=== PATIENT | female | born 1960 | race Caucasian/White ===

== ENCOUNTER 2020-04-12 09:19 | Outpatient (CLI) | payer OTHER, SELFPAY ==
--- NOTE | 2020-04-12 09:22 | EST_ITS ---
Patient Info Name: Anabel Doan Age: 59 years : 1960 Gender: Female Ht: 66 in Wt: 215 lbs BSA: 2.17 m2 HR: 78 bpm BP: 132 / 85 mmHg Heart Rhythm: Sinus Rhythm Exam Date: 04/12/2020 9:36 AM Exam Location: [facility] Patient Status: Outpatient Admit Date: 04/12/2020 Staff Ordering Physician: Jacky Mcnair MD Sales Office Manager: LAYNE Attending Provider: ALISTAIR MATTSON DO Referring Physician: Tabby PIRES; Exercise Technologist: Sasha Bhatia RDCS Exercise Physician: Alistair Mattson DO Exam Type: CA stress echo Study Info Indications R07.89 - Other chest pain Treadmill exercise stress echocardiogram is performed. Summary 1. 1. Negative Dawood exercise stress test for ischemic ST changes by ECG criteria. 2. 2. Reduced functional capacity, achieving 7 METs of workload. 3. 3. Appropriate HR response to exercise. 4. 4. Appropriate HR recovery at 1 minute post exercise. 5. 5. Negative stress echocardiogram for ischemia by wall motion analysis. 6. 6. Patient informed of the above results. Stress Echo Findings Left Ventricle Appropriate increase in LV endocardial thickening with systole. Appropriate augmenation of contractility with systole. No wall motion abnormality. Left Ventricle Normal LV systolic function, no wall motion abnormality. Protocol: Dawood Stress ECG Details Stage: REST Duration (min): 4 min : 52 sec Speed (mph): 0.0 Grade (%): 0 HR (bpm): 84 SBP (mmHg): 132 DBP (mmHg): 85 METS: --- Stage: REST Duration (min): 32 min : 10 sec Speed (mph): 0.0 Grade (%): 0 HR (bpm): 87 SBP (mmHg): 132 DBP (mmHg): 85 METS: --- Stage: STAGE 1 Duration (min): 1 min : 0 sec Speed (mph): 1.7 Grade (%): 10 HR (bpm): 107 SBP (mmHg): 132 DBP (mmHg): 85 METS: --- Stage: STAGE 1 Duration (min): 2 min : 0 sec Speed (mph): 1.7 Grade (%): 10 HR (bpm): 129 SBP (mmHg): 132 DBP (mmHg): 85 METS: --- Stage: STAGE 1 Duration (min): 3 min : 0 sec Speed (mph): 1.7 Grade (%): 10 HR (bpm): 137 SBP (mmHg): 151 DBP (mmHg): 75 METS: --- Stage: STAGE 2 Duration (min): 1 min : 0 sec Speed (mph): 2.5 Grade (%): 12 HR (bpm): 147 SBP (mmHg): 151 DBP (mmHg): 75 METS: --- Stage: STAGE 2 Duration (min): 2 min : 0 sec Speed (mph): 2.5 Grade (%): 12 HR (bpm): 156 SBP (mmHg): 187 DBP (mmHg): 78 METS: --- Stage: STAGE 2 Duration (min): 2 min : 1 sec Speed (mph): 0.0 Grade (%): 0 HR (bpm): 156 SBP (mmHg): 187 DBP (mmHg): 78 METS: --- Stage: RECOVERY Duration (min): 0 min : 58 sec Speed (mph): 0.0 Grade (%): 0 HR (bpm): 138 SBP (mmHg): 178 DBP (mmHg): 78 METS: --- Stage: RECOVERY Duration (min): 1 min : 58 sec Speed (mph): 0.0 Grade (%): 0 HR (bpm): 119 SBP (mmHg): 178 DBP (mmHg): 78 METS: --- Stage: RECOVERY Duration (min):
== END 2020-04-12 09:20 | disposition home or self-care (01) ==
PROVIDERS: Family Provider Family Medicine; PCP Family Medicine; Visit Provider Family Medicine
DX: R07.9 Chest pain, unspecified (principal)
CPT/HCPCS: 93351

== ENCOUNTER 2021-02-05 00:29 | Day surgery (SDC) | payer OTHER, SELFPAY ==
[2021-01-17 13:50] VITALS: BMI 33.5
[2021-02-05 08:52] VITALS: BP 138/85; PULSE 96; RESP 18; TEMP 36.5; O2SAT 99
[2021-02-05] MEDS: LACTATED RINGERS 1,000 ML 150 ML IV CONT (09:02)
--- NOTE | 2021-02-05 09:06 | WPDANESEPPF ---
Anes - Initial Pre Proc Eval Procedure: Operation Date: 02/05/21 09:30 Proposed Procedures p Colonoscopy - Ernie Franklin MD Date/Time: 02/05/21 09:06 Surgeon: Ernie Franklin MD Pre Op Diagnosis: melena Patient Data Age: 60 Gender: F Height: 1.69 m Weight: 100.7 kg Last Vital Signs Temp 97.7 F 02/05/21 08:52 Pulse 96 02/05/21 08:52 Resp 18 02/05/21 08:52 BP 138/85 02/05/21 08:52 Pulse Ox 99 02/05/21 08:52 Allergies Allergy/AdvReac Type Severity Reaction Status Date / Time No Known Allergies Allergy Verified 02/05/21 08:45 Home Medications Medication Instructions Recorded Confirmed Type levothyroxine 112 mcg capsule 112 mcg PO DAILY #90 cap 05/01/20 02/05/21 Rx hydrochlorothiazide 12.5 mg tablet See Rx Instructions .ROUTE 10/05/20 02/05/21 Rx .COMPLEX #90 tablet ergocalciferol (vitamin D2) 1,250 See Rx Instructions .ROUTE 12/28/20 02/05/21 Rx mcg (50,000 unit) capsule .COMPLEX #6 each fluoxetine 40 mg capsule 40 mg PO DAILY #90 cap 12/28/20 02/05/21 Rx phentermine 30 mg capsule 30 mg PO DAILY #90 cap 12/28/20 02/05/21 Rx Patient hx anesthesia problems: none Family hx anesthesia problems: none Results Review: All pre-operative results and documents have been reviewed as part of the pre-operative evaluation. [facility] Past Medical History Medical History (Updated 02/05/21 @ 09:04 by Eduardo Forman MD) Anxiety Essential (primary) hypertension Hypothyroidism (acquired) Surgical History Surgical History History of cholecystectomy Family History Family History Mother Hypertension Family history of heart disease in male family member before age 55 Family history of cardiovascular disease Family history of atrial fibrillation Father Family history of diabetes mellitus in first degree relative Sibling Family history of malignant neoplasm of uterus Other Diabetes mellitus Social History Social History (Updated 01/04/21 @ 15:15 by Radha Merrill CMA) Smoking status: Never smoker Alcohol intake: never Substance use: never Substance use type: does not use Living arrangements: with family Gender identity (if verbalized by the patient): Female Spiritual care concerns: No Agree to blood products: Yes Anes - Eval Final PreProcedure Day of Procedure 02/05/21 09:06 Patient weight: obese Heart: regular rate and rhythm Lungs: clear to auscultation Airway: Mallampati scale class II Neurological: alert and oriented Last oral intake: >/= 8 hours ASA classification: II Emergent: no Anesthetic plan: proceed Anesthesia type and monitoring: general GIVS and standard monitoring Results Review: All pre-operative results and documents have been reviewed as part of the pre-operative evaluation. Informed Consent: The patient's anesthetic plan and its attendant risks and benefits were discussed with the patient/family/POA. Questions were solicited and answers provided to the satisfaction of the patient/family/POA.
--- NOTE | 2021-02-05 09:06 | PM.HPGS ---
History of Present Illness History of Present Illness Consent: Risks, benefits, and alternatives have been discussed and questions answered. Patient agrees to proceed with procedure. Chief complaint: melena Narrative: Anabel Doan is a 60 year old female with one episode of rectal bleeding, had negative cologuard 3 years ago but never had colonoscopy Review of Systems Constitutional: Constitutional: Denies headache(s) and Denies weakness Eyes: Eyes: Denies blurry vision ENT: Reports Normal hearing present, Denies headache(s) and Denies neck pain Cardiovascular: Cardiovascular: Denies chest pain and Denies dyspnea Respiratory: Respiratory: Denies dyspnea Gastrointestinal: Gastrointestinal: Reports no additional gastrointestinal complaints Genitourinary: Genitourinary: Denies dysuria Musculoskeletal: Musculoskeletal: Denies neck pain Integumentary/Breasts: Skin/Breast: Denies dry skin Neurologic: Reports Normal hearing present, Denies headache(s) and Denies weakness Psychiatric: Psychiatric: Denies anxiety Endocrine: Endocrine: Denies change in body appearance Hematologic/Lymphatic: Hematologic/Lymphatic: Denies easy bleeding Allergic/Immunologic: Allergic/Immunologic: Denies urticaria PMFSH Past Medical History Medical History (Updated 02/05/21 @ 09:07 by Ernie Franklin MD) Anxiety Essential (primary) hypertension Hypothyroidism (acquired) Rectal bleeding Surgical History Surgical History History of cholecystectomy Family History Family History Mother Hypertension Family history of heart disease in male family member before age 55 Family history of cardiovascular disease Family history of atrial fibrillation Father Family history of diabetes mellitus in first degree relative Sibling Family history of malignant neoplasm of uterus Other Diabetes mellitus Social History Social History (Updated 01/04/21 @ 15:15 by Radha Merrill CMA) Smoking status: Never smoker Alcohol intake: never Substance use: never Substance use type: does not use Living arrangements: with family Gender identity (if verbalized by the patient): Female Spiritual care concerns: No Agree to blood products: Yes Meds Home Medications and Allergies Home Medications Medication Instructions Recorded Confirmed Type levothyroxine 112 mcg capsule 112 mcg PO DAILY #90 cap 05/01/20 02/05/21 Rx hydrochlorothiazide 12.5 mg tablet See Rx Instructions .ROUTE 10/05/20 02/05/21 Rx .COMPLEX #90 tablet ergocalciferol (vitamin D2) 1,250 See Rx Instructions .ROUTE 12/28/20 02/05/21 Rx mcg (50,000 unit) capsule .COMPLEX #6 each fluoxetine 40 mg capsule 40 mg PO DAILY #90 cap 12/28/20 02/05/21 Rx phentermine 30 mg capsule 30 mg PO DAILY #90 cap 12/28/20 02/05/21 Rx Allergies Allergy/AdvReac Type Severity Reaction Status Date / Time No Known Allergies Allergy Verified 02/05/21 08:45 Vital Signs Vital Signs - 24 hr 02/05/21 08:52 Temperature 97.7 F Pulse Rate 96 Respiratory Rate 18 Blood Pressure 138/85 Pulse Oximetry 99 Exam Const: General: comfortable and no acute distress HENMT: General nose exam: Normal nares present Eyes: General: appearance normal, both eyes and all related structures Neck: Neck: no JVD Resp: Auscultation: clear to auscultation bilaterally Cardio: Rate: regular rate Rhythm: regular rhythm GI: Inspection: non-distended GI Palp: Yes Soft to palpation Skin: General skin exam: normal color Neuro: General: gait normal Speech: normal speech Extrem: General: normal to inspection Psych: Mental Status: mental status grossly normal Assessment and Plan Assessment and plan (1) Rectal bleeding: Code(s): K62.5 - Hemorrhage of anus and rectum Status: Acute Assessment and Plan: colonoscopy
[2021-02-05 09:29] VITALS: BP 112/69; PULSE 77; RESP 20; O2SAT 95
[2021-02-05 09:39] VITALS: BP 127/61; PULSE 79; RESP 19; O2SAT 100
[2021-02-05 09:49] VITALS: BP 147/88; PULSE 67; RESP 13; O2SAT 100
== END 2021-02-05 10:15 | disposition home or self-care (01) ==
PROVIDERS: PCP Family Medicine; Visit Provider Internal Medicine Gastroenterology
PROC: 0DJD8ZZ Inspection of Lower Intestinal Tract, Via Natural or Artificial Opening Endoscopic (ICD-10-PCS; CPT 45378; principal; 2021-02-05 09:30)
DX: Z12.11 Encounter for screening for malignant neoplasm of colon (principal); D12.0 Benign neoplasm of cecum; K92.1 Melena; K57.30 Diverticulosis of large intestine without perforation or abscess without bleeding; K64.8 Other hemorrhoids; I10 Essential (primary) hypertension; E03.9 Hypothyroidism, unspecified; F41.9 Anxiety disorder, unspecified; E66.9 Obesity, unspecified; Z68.35 Body mass index [BMI] 35.0-35.9, adult
CPT/HCPCS: 45385; 88305; J2704; J7120

== ENCOUNTER 2023-06-10 11:39 | Emergency (ER) | payer OTHER, SELFPAY ==
--- NOTE | ~2023-06-10 | XR_ITS ---
XR chest 2V DATE: 06/10/2023 12:17 INDICATION: Shortness of breath, productive cough. History of hypertension. Nonsmoker. TECHNIQUE: PA and lateral views COMPARISON: 03/21/2009 two-view chest FINDINGS: Normal heart size. No hilar or mediastinal enlargement. No pulmonary infiltrate or consolidation, pleural effusion or pulmonary vascular congestion or pneumo thorax is detected. IMPRESSION: No active cardiopulmonary disease Reviewed, dictated and finalized at location B.
--- NOTE | 2023-06-10 11:42 | ED.URI ---
HPI - URI/Sore Throat General Chief Complaint: Upper Respiratory Infection Stated Complaint: FEVER/HEADACHE/COUGH Time Seen by Provider: 06/10/23 11:42 Source: patient Mode of arrival: ambulatory Limitations: no limitations History of Present Illness HPI Narrative: Anabel is a 62-year-old female patient comes today with complaints of productive cough, shortness breath on exertion, and pain in the between her shoulder blades when coughing and taking deep breaths. She reports 2 weeks ago she had fever, headache and cough and states that all of the symptoms have improved except for the cough. Does feel general malaise. No recent fever, chills, or body aches. Is unable to cough up the phlegm to see what color the phlegm is. States she feels as though she is wheezing at nighttime. No history of COPD or asthma. Patient is a nonsmoker MD elicited complaint: cough and other (Shortness breath on exertion, fatigue) Related Data Allergies Allergy/AdvReac Type Severity Reaction Status Date / Time No Known Allergies Allergy Verified 06/10/23 11:57 Review of Systems Review of Systems: Pertinent positives per HPI. Patient denies any fever, chills, rash, headache, visual changes, dizziness, chest pain, palpitations, nausea, vomiting, diarrhea, constipation, abdominal pain, or any urinary issues. PENDING SALE TO [facility] Past Medical History Medical History Anxiety Essential (primary) hypertension Hypothyroidism (acquired) Rectal bleeding Surgical History Surgical History History of cholecystectomy Family History Family History Mother Hypertension Family history of heart disease in male family member before age 55 Family history of cardiovascular disease Family history of atrial fibrillation Father Family history of diabetes mellitus in first degree relative Sibling Family history of malignant neoplasm of uterus Other Diabetes mellitus Social History Social History Smoking status: Never smoker Alcohol intake: never Substance use: never Substance use type: does not use Lack of Transportation: No Lack of Food: Never True Current Housing: I Have Housing Concerned About Future Housing: No Difficulty Paying Gas/Electric Bills: No Difficulty Paying for Meds: No Currently Unemployed: No Education: Associate Degree Difficulty w/ Childcare or Family Care: No Living arrangements: with family Occupation/Education: retired Gender identity (if verbalized by the patient): Female Spiritual care concerns: No Agree to blood products: Yes Comments At the time of my signature, I reviewed and agree with the nursing past medical, surgical, social, and family history. There is no relevant family history pertinent to the patient complaint. Exam Narrative: General: Well-developed, well nourished, in no apparent distress Head: Normocephalic, atraumatic Eyes: Pupils equally round and reactive to light bilaterally, EOM intact, sclera and conjunctive clear, no discharge, lids normal Ears: TMs intact and clear, ear canals clear, no drainage, grossly hearing normal. Nose: Nares patent, no discharge, no inflammation, no sinus tenderness. Mouth: Oral pharynx without lesions or masses, good dentition, MMM. Neck: Supple, trachea midline, no enlargement of anterior or posterior cervical nodes, no thyroid masses or goiter palpable. Cardio: Regular rate and rhythm, s1 and s2 normal, no murmur appreciated. Resp: Clear to auscultation bilaterally, no rhonchi, rales, wheezing or rubs Course Course Emergency Course: Portions of this record may have been created with voice recognition software. Level of Care: Express Care Visit Vital Signs Vital signs: Vital signs reviewed MDM
[2023-06-10 11:46] VITALS: BP 124/88; PULSE 85; RESP 16; TEMP 36.8; O2SAT 99
== END 2023-06-10 12:29 | disposition home or self-care (01) ==
PROVIDERS: Emergency Provider Nurse Practitioner Family
DX: J40 Bronchitis, not specified as acute or chronic (principal); I10 Essential (primary) hypertension; E03.9 Hypothyroidism, unspecified; F41.9 Anxiety disorder, unspecified
CPT/HCPCS: 71046; 99213; G0463

== ENCOUNTER 2024-10-21 14:37 | Outpatient (CLI) | payer OTHER, SELFPAY ==
--- NOTE | ~2024-10-21 | MM_ITS ---
EXAMINATION: MM screening rosana BI w george HISTORY: Screening TECHNIQUE: Craniocaudal and mediolateral oblique 3-D tomosynthesis images were obtained and synthetic 2-D images were generated. CAD analysis was submitted and interpreted. COMPARISON: Comparison to multiple prior studies sequentially, with oldest reviewed study dated 01/08. BREAST PARENCHYMAL COMPOSITION: Not dense: There are scattered areas of fibroglandular density. FINDINGS: There is no evidence of suspicious mass, calcification, or architectural distortion to sugg est malignancy in either breast. There has been no suspicious interval change. IMPRESSION: 1. No mammographic evidence of malignancy. 2. Recommend routine screening mammography in one year. BI-RADS Category 1: Negative Reviewed, dictated and finalized at location A.
== END 2024-10-21 14:38 | disposition home or self-care (01) ==
LOC: ANHIMG 14:39
PROVIDERS: PCP Family Medicine; Visit Provider Family Medicine
DX: Z12.31 Encounter for screening mammogram for malignant neoplasm of breast (principal)
CPT/HCPCS: 77063; 77067